=== PATIENT | female | born 1970 | race Caucasian/White ===

== ENCOUNTER 2018-01-14 06:24 | Day surgery (SDC) | payer OTHER ==
[2018-01-14] MEDS ORDERED: Lidocaine/Epinephrine 1% 1:100000 10 ML IJ ONE (07:40)
[2018-01-14] MEDS ORDERED: Bupivacaine 0.25% 20 ML INJ IJ ONE (07:40)
[2018-01-14] MEDS ORDERED: ceFAZolin 1 gm FROZEN Premix 2 GM/100 ML ML IVPB ONE (07:41)
[2018-01-14] MEDS ORDERED: Propofol 10 mg/ml Inj (20 ML) ONE (07:45)
[2018-01-14] MEDS ORDERED: Midazolam 2 MG/2 ML VIAL ONE (07:46)
[2018-01-14] MEDS ORDERED: Neostigmine Methylsulfate 3mg/3ml Syringe IV ONE (09:02)
[2018-01-14] MEDS ORDERED: Rocuronium 10 mg/ml (5 ml) ONE (09:02)
[2018-01-14] MEDS ORDERED: HYDROmorphone 0.5 mg/0.5 ml ISec IVP PRN (09:25)
[2018-01-14] MEDS ORDERED: Oxycodone/Acetaminophen 5/325 mg Tab PO PRN (09:35)
--- NOTE | 2018-01-14 09:40 | CP.SDSHP ---
Same Day Surgery [facility] & P - Allergies Allergies: Allergies shellfish derived Allergy (Severe, Verified 01/07/18 10:06) ANAPHYLAXIS codeine Allergy (Intermediate, Verified 01/14/18 06:51) ITCHING - Physical Exam Vital Signs: Vital Signs 01/14/18 06:38 Temperature 98.3 F Pulse Rate 90 Respiratory 18 Rate Blood Pressure 142/92 H O2 Sat by Pulse 98 Oximetry Short Stay Discharge - Short Stay Discharge Admitting Diagnosis/Reason for Visit: CHOLECYSTITIS / CHOLELITHIASIS Disposition: HOME/ ROUTINE Referrals: Yifan Roche MD [Staff Provider] - Instructions: Cholecystectomy, Laparoscopic Surgery, Gallstones (DC) Additional Instructions (Diet, Activity): Please follow up with Dr. Roche in 1-2 weeks post op Ok to shower tomorrow, you have special tape over your incision sites, it will fall off on it's own. Do not pull them off Do not sit in a hot tub, go swimming or take a bath Ok to resume normal diet No heavy lifting for 4-6 weeks or until cleared by Dr. Roche
--- NOTE | 2018-01-14 10:16 | PCM.SURG1 ---
Surgeon's Initial Post Op Note - Surgeon's Notes Surgeon: Dr Yifan Roche Bid Analyst: PRANAY Cain Type of Anesthesia: General Endo Pre-Operative Diagnosis: Cholelithiasis Operative Findings: See op report Post-Operative Diagnosis: Cholelithiasis Operation Performed: Robotic Cholecystectomy Specimen/Specimens Removed: Gallbladder Estimated Blood Loss: EBL {In ML}: 10 Blood Products Given: N/A Drains Used: No Drains Post-Op Condition: Good Date of Surgery/Procedure: 01/14/18 Time of Surgery/Procedure: 09:50
[2018-01-14 11:07] VITALS: BP 124/72; PULSE 76; RESP 18; TEMP 98; O2SAT 98
--- NOTE | 2018-01-18 02:49 | OP ---
PROCEDURE DATE: 01/14/2018 PREOPERATIVE DIAGNOSES: Chronic cholecystitis and cholelithiasis. POSTOPERATIVE DIAGNOSES: Chronic cholecystitis and cholelithiasis. PROCEDURE DONE: Robotic cholecystectomy. SURGEON: Yifan Roche MD TRAM DRIVER: CHARLES Cain TYPE OF ANESTHESIA: General endotracheal tube anesthesia. ESTIMATED BLOOD LOSS: Around 10 mL. DRAINS: None. PATHOLOGY: Gallbladder with gallstone was sent for the pathology. COMPLICATIONS: None. INTRAOPERATIVE FINDINGS: The patient had changes of chronic cholecystitis and cholelithiasis. DESCRIPTION OF PROCEDURE: On intraoperative steps, this is a 47-year-old female who was diagnosed with chronic cholecystitis and cholelithiasis; and the patient was consented for the robotic cholecystectomy, possible open, brought to the OR, placed supine on the operating table. After induction of the anesthesia, the abdomen was prepped and draped in usual sterile fashion. The supraumbilical transverse incision was made. After incising skin, subcutaneous tissue, and the fascia, the robotic camera port was placed. Pneumo was created. Another 3/8-mm port was placed in upper abdomen. Robot was brought in. Camera arm as well as arm 1 and arm 2 were docked. The gallbladder was retracted cranially. Calot's angle dissection was done. Cystic duct and cystic artery were identified and clipped at 3 places and cut in between 2 clips nearby gallbladder, and gallbladder was dissected free from the gallbladder fossa, taken in EndoCatch bag, taken out through the umbilical port site, and sent off the table for the pathology. There was proper hemostasis in each and every part of the procedure. Each and every part of the procedure, the gallbladder fossa hemostasis was adequate, and after that, the gallbladder was taken in Endocatch, taken out through the umbilical port site and sent off the table for the pathology. All the instruments were taken out. Robot was undocked. All the port was taken out under vision. Pneumo was deflated. Umbilical port site was closed in two layers, the fascia with 0 Vicryl interrupted suture, skin with 4-0 Monocryl, and dry sterile dressing was applied. The patient tolerated the procedure well. Count of instrument and gauze was correct. There was no apparent complication. Yifan Roche MD
== END 2018-01-14 11:52 | disposition home or self-care (01) ==
LOC: C.SDS 06:24
PROVIDERS: ATTEND Surgery Surgical Critical Care
DX: K80.10 Calculus of gallbladder with chronic cholecystitis without obstruction (principal)
CPT/HCPCS: 47562; 88304; J0690; J1100; J1885; J2001; J2250; J2405; J2704; J2710; J3010; J7030